=== PATIENT | male | born 1975 | race Caucasian/White ===

== ENCOUNTER 2023-01-11 11:31 | Inpatient (IN) | payer OTHER ==
[~2023-01-11 11:31] MED LIST: LORazepam 2 MG TABLET PO SCH
[2023-01-11 12:37] VITALS: BMI 19.8
[2023-01-11] MEDS ORDERED: BISMUTH SUBSALICYLATE 524 MG/30 ML PO PRN (13:06)
[2023-01-11] MEDS ORDERED: DICYCLOMINE HCL 10 MG CAPSULE PO PRN (13:06)
[2023-01-11] MEDS ORDERED: ONDANSETRON *ODT* 4 MG TABLET SL PRN (13:06)
[2023-01-11] MEDS ORDERED: BENZOCAINE/MENTHOL (CHLORASEPTIC ) LOZENGE MM PRN (13:06)
[2023-01-11] MEDS ORDERED: ACETAMINOPHEN 325 MG TABLET (FP) PO PRN (13:06)
[2023-01-11] MEDS ORDERED: IBUPROFEN 600 MG TABLET (FP) PO PRN (13:06)
[2023-01-11] MEDS ORDERED: guaiFENesin 600 MG TABLET.ER (FP) PO PRN (13:06)
[2023-01-11] MEDS ORDERED: BENZONATATE 200 MG CAPSULE PO PRN (13:06)
[2023-01-11] MEDS ORDERED: LOPERAMIDE HCL 2 MG CAPSULE PO PRN (13:06)
[2023-01-11] MEDS ORDERED: NALOXONE HCL (KLOXXADO) 8 MG SPRAY NS PRN (13:06)
[2023-01-11] MEDS ORDERED: POLYETHYLENE GLYCOL (HEALTHYLAX) 3350 17 GM PACKET PO PRN (13:06)
[2023-01-11] MEDS ORDERED: NALOXONE HCL 0.4 MG/ML VIAL IM PRN (13:06)
[2023-01-11] MEDS ORDERED: IBUPROFEN 400 MG TABLET (FP) PO PRN (13:06)
[2023-01-11] MEDS ORDERED: MAG HYDROX/AL HYDROX/SIMETH 30 ML UNIT-DOSE CUP PO PRN (13:06)
[2023-01-11] MEDS ORDERED: MAGNESIUM HYDROX 2400MG/30ML ORAL SUSPENSION 30 ML CUP PO PRN (13:06)
[2023-01-11] MEDS ORDERED: LORazepam 2 MG TABLET PO ONE (13:45)
[2023-01-11] MEDS: PRENATAL VITAMINS W/ FOLIC ACID TABLET (FP) PO SCH (14:25)
[2023-01-11] MEDS ORDERED: ONDANSETRON *ODT* 4 MG TABLET ONE (14:30)
[2023-01-11] MEDS: cloNIDine HCL 0.1 MG TABLET PO PRN (15:18)
[2023-01-11] MEDS: LORazepam 2 MG TABLET PO SCH ×2 (17:12→22:08)
[2023-01-11 17:44] LABS: HEMATOCRIT 35.8 % (35.4-49); HEMOGLOBIN 11.6 GM/dL (11.7-16.9); MCH 30.5 pg (25.7-33.7); MCHC 32.5 g/dl (32.0-35.9); MEAN CELL VOLUME 93.8 fl (80-96); MEAN PLT VOLUME 11.1 fl (7.5-11.1); RBC 3.81 M/mm3 (4.00-5.60); RDW 20.2 % (11.9-15.9); WHITE BLOOD COUNT 3.3 K/mm3 (4.0-10.0)
[2023-01-11 17:45] LABS: POTASSIUM 3.9 mmol/L (3.5-5.1)
[2023-01-11 17:47] LABS: CALCIUM 7.6 mg/dL (8.5-10.1)
[2023-01-11 17:48] LABS: ALBUMIN 3.1 g/dl (3.4-5.0); BLOOD UREA NITROGEN 6.8 mg/dL (7-18)
[2023-01-11 17:50] LABS: CREATININE 0.6 mg/dL (0.55-1.3)
[2023-01-11 17:52] LABS: TOT PROT 8.2 g/dl (6.4-8.2)
[2023-01-11 17:53] LABS: BILIRUBIN,TOTAL 3.2 mg/dL (0.2-1)
[2023-01-11] MEDS: hydrOXYzine PAMOATE 25 MG CAPSULE (FP) PO PRN (18:08)
[2023-01-11 18:33] LABS: PLATELET COUNT 34 10^3/uL (134-434)
[2023-01-11] MEDS: LORazepam 1 MG TABLET PO PRN (19:15)
[2023-01-11] MEDS ORDERED: hydrOXYzine PAMOATE 25 MG CAPSULE (FP) PO ONE (20:01)
[2023-01-11] MEDS: METHOCARBAMOL 500 MG TABLET PO PRN (20:22)
[2023-01-11] MEDS ORDERED: SUVOREXANT 10 MG TABLET PO PRN (22:00)
[2023-01-11] MEDS ORDERED: MELATONIN 5 MG TABLETS PO SCH (22:00)
[2023-01-11] MEDS: THIAMINE HCL 100 MG TABLET (FP) PO SCH (22:08)
[2023-01-11] MEDS: LACTULOSE 20 GM/30 ML UDC (FOR ORAL USE ONLY) PO SCH (22:39)
[2023-01-12] MEDS: cloNIDine HCL 0.1 MG TABLET PO PRN ×2 (00:20→04:58)
[2023-01-12] MEDS: LORazepam 1 MG TABLET PO PRN (01:33)
[2023-01-12] MEDS: hydrOXYzine PAMOATE 25 MG CAPSULE (FP) PO PRN ×3 (01:35→18:25)
[2023-01-12] MEDS: METHOCARBAMOL 500 MG TABLET PO PRN ×2 (03:35→10:08)
[2023-01-12] MEDS: LORazepam 2 MG TABLET PO SCH ×4 (04:57→21:59)
[2023-01-12] MEDS: LACTULOSE 20 GM/30 ML UDC (FOR ORAL USE ONLY) PO SCH ×3 (05:00→21:59)
[2023-01-12] MEDS: PRENATAL VITAMINS W/ FOLIC ACID TABLET (FP) PO SCH (10:08)
[2023-01-12 11:00] LABS: ALBUMIN 3.2 g/dl (3.4-5.0)
[2023-01-12 11:03] LABS: BILIRUBIN,DIRECT 2.2 mg/dL (0.0-0.2); BILIRUBIN,TOTAL 4.5 mg/dL (0.2-1); TOT PROT 8.2 g/dl (6.4-8.2)
[2023-01-12 15:20] LABS: HEMATOCRIT 35.7 % (35.4-49); HEMOGLOBIN 11.6 GM/dL (11.7-16.9); MCH 30.5 pg (25.7-33.7); MCHC 32.5 g/dl (32.0-35.9); MEAN CELL VOLUME 93.9 fl (80-96); MEAN PLT VOLUME 11.3 fl (7.5-11.1); RDW 20.8 % (11.9-15.9); WHITE BLOOD COUNT 3.9 K/mm3 (4.0-10.0)
[2023-01-12 15:24] LABS: PLATELET COUNT 28 10^3/uL (134-434)
[2023-01-12 15:44] LABS: AMYLASE 99 U/L (25-115); LIPASE 496 U/L (73-393)
[2023-01-12] MEDS: THIAMINE HCL 100 MG TABLET (FP) PO SCH (21:59)
[2023-01-12] MEDS ORDERED: SUVOREXANT 15 MG TABLET PO PRN (22:00)
[2023-01-13] MEDS: hydrOXYzine PAMOATE 25 MG CAPSULE (FP) PO PRN (01:27)
[2023-01-13] MEDS: METHOCARBAMOL 500 MG TABLET PO PRN ×2 (01:30→10:23)
[2023-01-13] MEDS: LORazepam 1 MG TABLET PO SCH ×3 (05:08→17:47)
[2023-01-13] MEDS: LACTULOSE 20 GM/30 ML UDC (FOR ORAL USE ONLY) PO SCH ×2 (05:09→13:20)
[2023-01-13 06:18] VITALS: RESP 18
[2023-01-13 09:55] VITALS: BP 133/81; PULSE 94; TEMP 98.7
[2023-01-13] MEDS: PRENATAL VITAMINS W/ FOLIC ACID TABLET (FP) PO SCH (10:23)
[2023-01-14] MEDS ORDERED: LORazepam 0.5 MG TABLET PO PRN
[2023-01-14] MEDS ORDERED: LORazepam 0.5 MG TABLET PO SCH (05:00)
[2023-01-15] MEDS ORDERED: LORazepam 0.5 MG TABLET PO ONE (05:00)
== END 2023-01-13 23:18 | disposition short-term general hospital (02) | DRG 775 ==
LOC: YASAS 11:31 → Y6N 13:30
PROVIDERS: ADMIT Allergy & Immunology; ATTEND Surgery
PROC: HZ2ZZZZ Detoxification Services for Substance Abuse Treatment (ICD-10-PCS; principal; 2023-01-10)
DX: F10.230 Alcohol dependence with withdrawal, uncomplicated (principal); F33.0 Major depressive disorder, recurrent, mild; F10.282 Alcohol dependence with alcohol-induced sleep disorder; F10.280 Alcohol dependence with alcohol-induced anxiety disorder; F10.24 Alcohol dependence with alcohol-induced mood disorder; F41.9 Anxiety disorder, unspecified; E72.20 Disorder of urea cycle metabolism, unspecified; D69.6 Thrombocytopenia, unspecified; R74.01 Elevation of levels of liver transaminase levels; Z28.310 Unvaccinated for COVID-19; Z28.9 Immunization not carried out for unspecified reason
CPT/HCPCS: 36415; 80053; 80076; 82140; 82150; 83690; 85027; 86780; 87635; 93005; 93010; Q0162

== ENCOUNTER 2023-01-13 11:36 | Inpatient (IN) | payer OTHER ==
[2023-01-13 13:30] LABS: BASO % 2.1 % (0-2.0); EOS % 3.7 % (0-4.5); HEMATOCRIT 35.2 % (35.4-49); HEMOGLOBIN 11.7 GM/dL (11.7-16.9); MCH 30.7 pg (25.7-33.7); MCHC 33.4 g/dl (32.0-35.9); MEAN CELL VOLUME 92.1 fl (80-96); MONO % 16.9 % (3.8-10.2); NEUT % 48.3 % (42.8-82.8); RBC 3.82 M/mm3 (4.00-5.60); RDW 20.2 % (11.9-15.9); WHITE BLOOD COUNT 2.5 K/mm3 (4.0-10.0)
[2023-01-13 13:31] LABS: POTASSIUM 3.8 mmol/L (3.5-5.1)
[2023-01-13 13:33] LABS: ALBUMIN 2.8 g/dl (3.4-5.0); BLOOD UREA NITROGEN 7.2 mg/dL (7-18); CALCIUM 8.5 mg/dL (8.5-10.1); MAGNESIUM 1.8 mg/dL (1.8-2.4)
[2023-01-13 13:33] LABS: PLATELET COUNT 30 10^3/uL (134-434)
[2023-01-13 13:35] LABS: INR 2.58 (0.83-1.09); PROTHROMBIN TIME (PATIENT) 29.6 SEC (9.7-13.0)
[2023-01-13 13:36] LABS: BILIRUBIN,DIRECT 2.3 mg/dL (0.0-0.2); CREATININE 0.6 mg/dL (0.55-1.3)
[2023-01-13 13:38] LABS: ACTIVATED PTT 40.9 SECONDS (25.2-36.5)
[2023-01-13 13:38] LABS: BILIRUBIN,TOTAL 4.3 mg/dL (0.2-1); TOT PROT 7.2 g/dl (6.4-8.2)
[2023-01-13 14:26] LABS: URINE APPEARANCE TURBID; URINE BILIRUBIN 1+ (NEGATIVE); URINE COLOR DK YELLOW; URINE GLUCOSE (UA) NEGATIVE (NEGATIVE); URINE KETONE NEGATIVE (NEGATIVE); URINE LEUK ESTERASE NEGATIVE (NEGATIVE); URINE NITRITE NEGATIVE (NEGATIVE); URINE PROTEIN NEGATIVE (NEGATIVE)
[2023-01-13] MEDS ORDERED: PHYTONADIONE 10 MG/1 ML AMP IVPB ONE (16:21)
[2023-01-13] MEDS ORDERED: PHYTONADIONE 10 MG/1 ML AMP ONE (16:29)
[2023-01-13] MEDS: LORazepam 2 MG/ML SDV VIAL IVPUSH PRN (23:00)
[2023-01-14] MEDS: MELATONIN 5 MG TABLETS PO PRN ×2 (01:11→21:44)
[2023-01-14] MEDS ORDERED: hydrOXYzine PAMOATE 50 MG CAPSULE (FP) PO ONE (03:36)
[2023-01-14] MEDS: MULTIVITAMINS (DAILY MVI) TABLET (FP) PO SCH (09:50)
[2023-01-14] MEDS: THIAMINE HCL 100 MG TABLET (FP) PO SCH (09:50)
[2023-01-14] MEDS: FOLIC ACID 1 MG TABLET (FP) PO SCH (09:50)
[2023-01-14] MEDS: PANTOPRAZOLE 40 MG TABLET PO SCH (09:50)
[2023-01-14] MEDS ORDERED: LACTULOSE 20 GM/30 ML UDC (FOR ORAL USE ONLY) PO SCH (10:00)
[2023-01-14] MEDS: LORazepam 2 MG/ML SDV VIAL IVPUSH PRN ×2 (10:02→21:44)
[2023-01-14 10:18] LABS: BASO % 2.1 % (0-2.0); EOS % 4.2 % (0-4.5); HEMATOCRIT 33.1 % (35.4-49); HEMOGLOBIN 11.2 GM/dL (11.7-16.9); MCH 31.2 pg (25.7-33.7); MCHC 33.9 g/dl (32.0-35.9); MEAN CELL VOLUME 92.2 fl (80-96); MEAN PLT VOLUME 9.3 fl (7.5-11.1); MONO % 16.1 % (3.8-10.2); NEUT % 35.6 % (42.8-82.8); RDW 20.5 % (11.9-15.9); WHITE BLOOD COUNT 3.1 K/mm3 (4.0-10.0)
[2023-01-14 10:24] LABS: INR 2.63 (0.83-1.09); PROTHROMBIN TIME (PATIENT) 30.2 SEC (9.7-13.0)
[2023-01-14 10:29] LABS: PLATELET COUNT 28 10^3/uL (134-434)
[2023-01-14 10:48] LABS: POTASSIUM 3.4 mmol/L (3.5-5.1)
[2023-01-14 10:51] LABS: ALBUMIN 2.6 g/dl (3.4-5.0); BLOOD UREA NITROGEN 10.3 mg/dL (7-18); CALCIUM 8.1 mg/dL (8.5-10.1); MAGNESIUM 1.7 mg/dL (1.8-2.4)
[2023-01-14 10:53] LABS: ANISOCYTOSIS 1+; MACROCYTOSIS 1+; TARGET CELLS 1+
[2023-01-14 10:55] LABS: CREATININE 0.6 mg/dL (0.55-1.3)
[2023-01-14 10:57] LABS: TOT PROT 6.9 g/dl (6.4-8.2)
[2023-01-14] MEDS ORDERED: MAGNESIUM OXIDE 400 MG TABLET (FP) PO ONE (11:15)
[2023-01-14] MEDS: LACTULOSE 20 GM/30 ML UDC (FOR ORAL USE ONLY) PO SCH ×2 (14:37→21:44)
[2023-01-15] MEDS: LORazepam 2 MG/ML SDV VIAL IVPUSH PRN ×3 (03:10→22:31)
[2023-01-15] MEDS: LACTULOSE 20 GM/30 ML UDC (FOR ORAL USE ONLY) PO SCH ×3 (05:56→22:31)
[2023-01-15 09:04] LABS: HEMATOCRIT 35.5 % (35.4-49); HEMOGLOBIN 11.8 GM/dL (11.7-16.9); MCH 31.5 pg (25.7-33.7); MCHC 33.4 g/dl (32.0-35.9); MEAN CELL VOLUME 94.4 fl (80-96); MEAN PLT VOLUME 10.4 fl (7.5-11.1); PLATELET COUNT 38 10^3/uL (134-434); RBC 3.76 M/mm3 (4.00-5.60); RDW 20.1 % (11.9-15.9)
[2023-01-15 09:06] LABS: INR 2.43 (0.83-1.09); PROTHROMBIN TIME (PATIENT) 27.9 SEC (9.7-13.0)
[2023-01-15] MEDS: PANTOPRAZOLE 40 MG TABLET PO SCH (09:21)
[2023-01-15] MEDS: FOLIC ACID 1 MG TABLET (FP) PO SCH (09:21)
[2023-01-15] MEDS: MULTIVITAMINS (DAILY MVI) TABLET (FP) PO SCH (09:21)
[2023-01-15] MEDS: THIAMINE HCL 100 MG TABLET (FP) PO SCH (09:21)
[2023-01-15 09:43] LABS: ALBUMIN 2.9 g/dl (3.4-5.0)
[2023-01-15 09:44] LABS: BLOOD UREA NITROGEN 12.1 mg/dL (7-18); CREATININE 0.7 mg/dL (0.55-1.3)
[2023-01-15 09:47] LABS: BILIRUBIN,TOTAL 5.2 mg/dL (0.2-1)
[2023-01-15 09:51] LABS: CALCIUM 8.2 mg/dL (8.5-10.1)
[2023-01-15 09:56] LABS: TOT PROT 7.4 g/dl (6.4-8.2)
[2023-01-15 10:28] LABS: ANISOCYTOSIS 2+; MACROCYTOSIS 2+
[2023-01-15] MEDS: predniSONE 20 MG TABLET (UD) PO SCH (11:23)
[2023-01-15] MEDS: CEFTRIAXONE 1 GM in DEXTROSE 5%-WATER - 50 ML IVPB SCH (13:24)
[2023-01-15 15:56] VITALS: BMI 18.2
[2023-01-15] MEDS: CARVEDILOL 3.125 MG TABLET (FP) PO SCH (22:31)
[2023-01-15] MEDS: MELATONIN 5 MG TABLETS PO PRN (22:31)
[2023-01-15] MEDS ORDERED: hydrOXYzine PAMOATE 25 MG CAPSULE (FP) PO ONE (22:48)
[2023-01-16] MEDS: LORazepam 2 MG/ML SDV VIAL IVPUSH PRN ×3 (05:31→21:40)
[2023-01-16] MEDS: LACTULOSE 20 GM/30 ML UDC (FOR ORAL USE ONLY) PO SCH ×3 (05:31→21:30)
[2023-01-16 08:52] LABS: BASO % 0.7 % (0-2.0); EOS % 1.9 % (0-4.5); HEMOGLOBIN 10.6 GM/dL (11.7-16.9); LYMPH % 28.2 % (8-40); MCH 31.2 pg (25.7-33.7); MCHC 33.1 g/dl (32.0-35.9); MEAN CELL VOLUME 94.3 fl (80-96); MEAN PLT VOLUME 10.9 fl (7.5-11.1); MONO % 15.8 % (3.8-10.2); NEUT % 53.4 % (42.8-82.8); PLATELET COUNT 40 10^3/uL (134-434); RBC 3.39 M/mm3 (4.00-5.60); RDW 20.3 % (11.9-15.9)
[2023-01-16 09:14] LABS: POTASSIUM 3.8 mmol/L (3.5-5.1)
[2023-01-16 09:18] LABS: CALCIUM 7.8 mg/dL (8.5-10.1)
[2023-01-16 09:19] LABS: ALBUMIN 2.6 g/dl (3.4-5.0); BLOOD UREA NITROGEN 12.8 mg/dL (7-18)
[2023-01-16 09:22] LABS: CREATININE 0.5 mg/dL (0.55-1.3)
[2023-01-16 09:23] LABS: TOT PROT 6.6 g/dl (6.4-8.2)
[2023-01-16 09:24] LABS: BILIRUBIN,TOTAL 3.6 mg/dL (0.2-1)
[2023-01-16] MEDS: FOLIC ACID 1 MG TABLET (FP) PO SCH (09:35)
[2023-01-16] MEDS: CEFTRIAXONE 1 GM in DEXTROSE 5%-WATER - 50 ML IVPB SCH (09:35)
[2023-01-16] MEDS: THIAMINE HCL 100 MG TABLET (FP) PO SCH (09:35)
[2023-01-16] MEDS: MULTIVITAMINS (DAILY MVI) TABLET (FP) PO SCH (09:35)
[2023-01-16] MEDS: CARVEDILOL 3.125 MG TABLET (FP) PO SCH ×3 (09:35→21:30)
[2023-01-16] MEDS: PANTOPRAZOLE 40 MG TABLET PO SCH (09:35)
[2023-01-16] MEDS: predniSONE 20 MG TABLET (UD) PO SCH (09:35)
[2023-01-16 18:52] VITALS: RESP 18
[2023-01-16] MEDS: MELATONIN 5 MG TABLETS PO PRN (21:39)
[2023-01-17] MEDS: LACTULOSE 20 GM/30 ML UDC (FOR ORAL USE ONLY) PO SCH ×2 (05:33→13:53)
[2023-01-17] MEDS: predniSONE 20 MG TABLET (UD) PO SCH (09:51)
[2023-01-17] MEDS: FOLIC ACID 1 MG TABLET (FP) PO SCH (09:51)
[2023-01-17] MEDS: CEFTRIAXONE 1 GM in DEXTROSE 5%-WATER - 50 ML IVPB SCH (09:51)
[2023-01-17] MEDS: MULTIVITAMINS (DAILY MVI) TABLET (FP) PO SCH (09:51)
[2023-01-17] MEDS: THIAMINE HCL 100 MG TABLET (FP) PO SCH (09:51)
[2023-01-17] MEDS: PANTOPRAZOLE 40 MG TABLET PO SCH (09:51)
[2023-01-17] MEDS: CARVEDILOL 3.125 MG TABLET (FP) PO SCH (09:51)
[2023-01-17] MEDS: LORazepam 2 MG/ML SDV VIAL IVPUSH PRN (09:54)
[2023-01-17 10:25] LABS: BASO % 1.4 % (0-2.0); EOS % 2.1 % (0-4.5); HEMATOCRIT 33.5 % (35.4-49); HEMOGLOBIN 11.3 GM/dL (11.7-16.9); LYMPH % 38.1 % (8-40); MCH 31.6 pg (25.7-33.7); MCHC 33.8 g/dl (32.0-35.9); MEAN CELL VOLUME 93.5 fl (80-96); MEAN PLT VOLUME 10.6 fl (7.5-11.1); MONO % 15.2 % (3.8-10.2); NEUT % 43.2 % (42.8-82.8); PLATELET COUNT 44 10^3/uL (134-434); RBC 3.58 M/mm3 (4.00-5.60); WHITE BLOOD COUNT 5.2 K/mm3 (4.0-10.0)
[2023-01-17 10:34] LABS: ACTIVATED PTT 36.2 SECONDS (25.2-36.5); INR 2.16 (0.83-1.09); PROTHROMBIN TIME (PATIENT) 24.9 SEC (9.7-13.0)
[2023-01-17 10:59] LABS: POTASSIUM 4.1 mmol/L (3.5-5.1)
[2023-01-17 11:05] LABS: ALBUMIN 2.6 g/dl (3.4-5.0); BLOOD UREA NITROGEN 15.2 mg/dL (7-18); CALCIUM 8.2 mg/dL (8.5-10.1)
[2023-01-17 11:08] LABS: CREATININE 0.7 mg/dL (0.55-1.3)
[2023-01-17 11:10] VITALS: BP 116/69; PULSE 79; TEMP 98
[2023-01-17 11:10] LABS: BILIRUBIN,TOTAL 3.2 mg/dL (0.2-1); TOT PROT 7.1 g/dl (6.4-8.2)
== END 2023-01-17 16:18 | disposition home or self-care (01) | DRG 433 ==
LOC: JER 11:36 → JERBED 16:06 → J5S 22:26 → OBSVTOIN 01-17 09:03
PROVIDERS: ADMIT Internal Medicine
DX: K70.30 Alcoholic cirrhosis of liver without ascites (principal); F10.239 Alcohol dependence with withdrawal, unspecified; K70.10 Alcoholic hepatitis without ascites; D69.6 Thrombocytopenia, unspecified; R74.01 Elevation of levels of liver transaminase levels
CPT/HCPCS: 36415; 74178-TC; 74181-TC; 76705-TC; 80053; 81003; 82105; 82140; 82248; 82550; 82553; 82962; 83605; 83690; 83735; 84100; 84484; 85025; 85610; 85730; 86704; 86705; 86708; 86709; 86803; 86850; 86900; 86901; 87086; 87186; 87340; 87517; 93005; 93010; 99285-25; G0378; Q9967